=== PATIENT | female | born 1990 | race African-American/Black ===

== ENCOUNTER 2017-02-05 16:25 | Emergency (ER) | payer OTHER ==
[~2017-02-05] VITALS: Ht 162.6 cm; Wt 100.9 kg
[2017-02-05 18:50] VITALS: BP 135/75
== END 2017-02-05 18:51 | disposition home or self-care (01) ==
LOC: EME 16:25
DX: M62.838 Other muscle spasm (principal); M79.605 Pain in left leg; Z88.6 Allergy status to analgesic agent
CPT/HCPCS: 93971; 99281; 99283

== ENCOUNTER 2017-06-06 11:55 | Emergency (ER) | payer OTHER ==
[~2017-06-06] VITALS: Ht 162.6 cm; Wt 102.7 kg
[2017-06-06 12:39] LABS: HEMATOCRIT 41.3 % (36.0-46.0); MCH 28.6 PG (29.0-34.0); MCHC 32.9 G/DL (30.0-36.0); MCV 86.8 FL (83-99); MEAN PLAT.VOLUME 10.8 uM^3 (9.5-12.4); PLATELET COUNT 247 K/uL (156-360); RBC DIS.WIDTH-CV 12.7 % (11.8-14.6); RBC DIS.WIDTH-SD 40.7 % (39-53); RED BLOOD COUNT 4.76 M/uL (3.80-5.20); WHITE BLOOD COUNT 5.4 K/uL (4.1-10.2)
[2017-06-06 12:49] LABS: CHLORIDE 105 mEq/L (99-109); POTASSIUM 3.9 mEq/L (3.7-5.4); SODIUM 137 mEq/L (136-147)
[2017-06-06 12:50] LABS: GLUCOSE 94 mg/dL (70-99)
[2017-06-06 12:52] LABS: ANION GAP 11 MEQ/L (2-14)
[2017-06-06 12:54] LABS: GFR ESTIMATE (CALCULATED) > 59 mL/min/
[2017-06-06 12:55] LABS: UREA NITROGEN (BUN) 7 mg/dL (9-23)
[2017-06-06 13:01] LABS: TROP-I INTERPRETATION NEGATIVE; TROPONIN-I < 0.01 ng/mL (0.0-0.30)
[2017-06-06 14:32] VITALS: BP 116/81
== END 2017-06-06 14:34 | disposition home or self-care (01) ==
LOC: EME 11:55
DX: R00.2 Palpitations (principal)
CPT/HCPCS: 71020; 80048; 84484; 85027; 93005; 99281; 99284

== ENCOUNTER 2018-02-23 07:16 | Inpatient (IN) | payer OTHER ==
[~2018-02-23] VITALS: Ht 162.6 cm; Wt 97.5 kg
[2018-02-23] VITALS (23 sets, daily range): BP systolic 100–131; BP diastolic 54–84
[2018-02-23] MEDS ORDERED: PRENATAL TABLE1 EAC3 PO (08:02)
[2018-02-23 09:44] LABS: BASOPHIL (%) 0.3 % (0-1); EOSINOPHIL (%) 0.7 % (0-5); EOSINOPHIL COUNT 0.1 K/uL (0-0.3); HEMATOCRIT 34.6 % (36.0-46.0); HEMOGLOBIN 11.3 G/DL (11.9-15.5); IMMATURE GRANULOCYTE (%) 0.3 % (0.0-0.7); LYMPHOCYTE (%) 29.9 % (15-42); MCH 27.7 PG (29.0-34.0); MCHC 32.7 G/DL (30.0-36.0); MCV 84.8 FL (83-99); MONOCYTE (%) 9.9 % (3-12); MONOCYTE COUNT 0.7 K/uL (0-0.8); NEUTROPHIL (%) 58.9 % (45-76); PLATELET COUNT 151 K/uL (156-360); RBC DIS.WIDTH-CV 12.9 % (11.8-14.6); RBC DIS.WIDTH-SD 39.5 % (39-53); RED BLOOD COUNT 4.08 M/uL (3.80-5.20); WHITE BLOOD COUNT 6.8 K/uL (4.1-10.2)
[2018-02-23 10:10] LABS: AMPHETAMINE NEGATIVE (500 ng/mL); BARBITURATES NEGATIVE (200 ng/mL); BENZODIAZEPINES NEGATIVE (150 ng/mL); BUPRENORPHINE NEGATIVE (10 ng/mL); COCAINE NEGATIVE (150 ng/mL); METHADONE NEGATIVE (200 ng/mL); METHAMPHETAMINE NEGATIVE (500 ng/mL); OPIATES (MORPHINE) NEGATIVE (100 ng/mL); OXYCODONE NEGATIVE (100 ng/mL); PHENCYCLIDINE NEGATIVE (25 ng/mL); PROPOXYPHENE NEGATIVE (300 ng/mL); THC CANNABINOIDS NEGATIVE (50 ng/mL); TRICYCLIC ANTIDEPRESSANTS NEGATIVE (300 ng/mL)
[2018-02-23] MEDS ORDERED: IBUPROFEN800 MG PO (16:23)
[2018-02-24 07:16] VITALS: BP 102/60
== END 2018-02-25 13:29 | disposition home or self-care (01) | DRG 775 ==
LOC: LDRP-OP 07:16 → 2WEST 07:17 → LDRP-OP 07:38 → 2WEST 15:45 → LDRP-OP 03-02 08:43
PROVIDERS: Midwife
PROC: 10E0XZZ Delivery of Products of Conception, External Approach (ICD-10-PCS; principal; 2018-02-23)
PROC: 3E033VJ Introduction of Other Hormone into Peripheral Vein, Percutaneous Approach (ICD-10-PCS; 2018-02-23)
PROC: 10907ZC Drainage of Amniotic Fluid, Therapeutic from Products of Conception, Via Natural or Artificial Opening (ICD-10-PCS; 2018-02-23)
PROC: 3E0R3BZ Introduction of Anesthetic Agent into Spinal Canal, Percutaneous Approach (ICD-10-PCS; 2018-02-23)
PROC: 00HU33Z Insertion of Infusion Device into Spinal Canal, Percutaneous Approach (ICD-10-PCS; 2018-02-23)
DX: O99.824 Streptococcus B carrier state complicating childbirth (principal); O99.12 Other diseases of the blood and blood-forming organs and certain disorders involving the immune mechanism complicating childbirth; D68.2 Hereditary deficiency of other clotting factors; O99.214 Obesity complicating childbirth; E66.01 Morbid (severe) obesity due to excess calories; Z68.41 Body mass index [BMI] 40.0-44.9, adult; Z3A.39 39 weeks gestation of pregnancy; Z37.0 Single live birth; Z87.891 Personal history of nicotine dependence
CPT/HCPCS: 85025; 88307; C1755; J1200; J2405; J2540; J3010; J7120